=== PATIENT | female | born 1980 | race Caucasian/White ===

== ENCOUNTER → 2018-07-23 | Outpatient (CLI) | payer MEDICAID | LOC: FIMAGING 13:11 | PROVIDERS: ATTEND Family Medicine | DX: R10.32 Left lower quadrant pain (principal); R35.0 Frequency of micturition ==

== ENCOUNTER 2018-07-25 19:13 | Emergency (ER) | payer MEDICAID ==
[2018-07-25] MEDS ORDERED: NS 1,000 ML IV ONE (19:53)
[2018-07-25] MEDS ORDERED: PROMETHAZINE HCL 25 MG/ML INJ IVP ONE (19:53)
--- NOTE | 2018-07-25 19:58 | EDPHY ---
H & P Time Seen by Provider: 07/25/18 19:28 HPI/ROS: HPI Lower abdominal pain. 37-year-old female by ambulance. This patient complains of worsening right lower abdominal pain for the last 3 days. She has been seen by her primary care physician at [facility] for this complaint. She reports that she had a urine test done which was unremarkable. She is not currently on an antibiotic. She reports that she also had an ultrasound which she states did not show anything significant. She comes the emergency department now stating that her pain has been worse since 2:00 p.m. When she last ate. She reports that she had an episode of nonbilious, nonbloody vomiting after she ate. She denies any bloody or melenic stool. No urinary complaints. No diarrhea. Significant past surgical history includes appendectomy and cholecystectomy. The patient is currently menstruating. ROS: Constitutional: No fever, no chills. No weakness. Eyes: No discharge. No changes in vision. ENT: No sore throat. No nasal congestion or rhinorrhea. Respiratory: No cough. No shortness of breath. Cardiac: No chest pain, no palpitations. Gastrointestinal: As above, no diarrhea. Genitourinary: No hematuria. No dysuria or increased frequency with urination. Musculoskeletal: No back pain. No neck pain. No myalgias or arthralgias. Skin: No rashes. Neurological: No headache. No focal weakness or altered sensation. Past medical history: ADD. As above. Social history: Nonsmoker. She is on the no narcotics list of our hospital. Here by herself. Denies alcohol. Physical Exam: General Appearance: Alert, she appears anxious but not in distress. This patient is responding to questions appropriately and in full sentences. This patient appears well-hydrated and well-nourished. Eyes: Pupils equal and round no pallor or injection. No lid edema, erythema or injection. Respiratory: There are no retractions, lungs are clear to auscultation with good air movement bilaterally. Cardiovascular: Regular rate and rhythm. No murmur. Gastrointestinal: Abdomen is soft with vague right lower quadrant tenderness on palpation extending into the mid lower abdomen, no masses, bowel sounds normal. No focal tenderness at McBurney's point. No Mccollum sign. Neurological: Motor sensory function is grossly intact. Cranial nerves are normal. Gait is normal. Skin: Warm and dry, no rashes. Musculoskeletal: Neck is supple and nontender. Extremities are symmetrical. All joints range without pain or impingement. Psychiatric: No agitation. No depression. Database: EKG: Imaging: CT scan of abdomen and pelvis with IV contrast: Status post cholecystectomy. Status post appendectomy. Constipation noted. This is otherwise a normal study. Results were discussed with staff radiologist Dr. Javier Martinez. Procedures: Emergency department course: Triage vital signs reviewed and are normal. IV was placed. She was started on IV normal saline with 500 cc to 1 L to be given over the next hour. She will be given 6.25 mg of IV Phenergan for nausea. CT imaging will be obtained to evaluate for possible bowel obstruction/volvulus. The patient consents to workup. Pelvic ultrasound from 07/23/2018: Report reviewed by myself. Essentially a normal study. Ovaries are unremarkable with good flow. Report dictated by staff radiologist Dr. Alfredo Womack. 8:50 p.m., the patient was re-evaluated, she is resting comfortably at this time. She has been tolerating oral fluids in the emergency department. Results of her emergency department workup were discussed with her. She feels comfortable going home at this time and I feel she is safe for discharge. I will have her follow up with her primary care physician at [facility] on Thursday or Thursday of this week for re-evaluation. Return to emergency department precautions have been reviewed with her. All of her questions were answered. The patient was discharged in good condition. Differential Diagnosis: The differential diagnosis on this patient includes but is not limited to bowel obstruction, ovarian cyst, colitis, diverticulitis. This represents a partial list of diagnoses considered. These considerations are based on history, physical exam, past history, reassessment and diagnostic testing. Smoking Status: Current every day smoker Constitutional: Initial Vital Signs Temperature (C) 36.6 C 07/25/18 19:17 Heart Rate 54 L 07/25/18 19:17 Respiratory Rate 18 07/25/18 19:17 Blood Pressure 137/85 H 07/25/18 19:17 O2 Sat (%) 98 07/25/18 19:17 O2 Delivery Mode Room Air Allergies/Adverse Reactions: penicillin G [Penicillin G] Allergy (Intermediate, Verified 06/13/12 11:08) Rash Home Medications: Medication Instructions Recorded Topiramate [Topamax (RX)] 25 mg PO 01/10/12 Tramadol HCl [Rybix ODT 50 mg] 50 mg PO 01/10/12 Vitamin B Complex [Vitamin B 1 each PO DAILY 01/10/12 Complex (OTC)] oxyCODONE/APAP 5/325 [Percocet 1 - 2 tab PO Q4-6PRN PRN #15 tab 01/10/12 5/325] LYRICA 07/26/13 Ondansetron Odt [Zofran Odt] 4 mg PO Q4PRN PRN #10 tab 07/26/13 Prilosec 07/26/13 Medical Decision Making - Diagnostics Imaging Results: Imaging Impressions Abdomen CT 07/25/18 19:53 Impression: 1. Constipation. 2. Previous appendectomy and cholecystectomy. 3. No bowel obstruction, pneumoperitoneum, urinary tract obstruction, or focal fluid collection. Findings and recommendations discussed with Emergency Department physician, Karo Koo MD at 20:40 hour, 07/25/2018. Final report concurs with initial preliminary interpretation. - Data Points Laboratory Results: Laboratory Results 07/25/18 19:20 07/25/18 19:20 07/25/18 07/25/18 07/25/18 19:50 19:20 19:20 WBC RBC Hgb Hct MCV MCH MCHC RDW Plt Count MPV Neut % (Auto) Lymph % (Auto) Crisp % (Auto) Eos % (Auto) Baso % (Auto) Nucleat RBC Rel Count Absolute Neuts (auto) Absolute Lymphs (auto) Absolute Monos (auto) Absolute Eos (auto) Absolute Basos (auto) Absolute Nucleated RBC Immature Gran % Immature Gran # Sodium 140 mEq/L mEq/L (135-145) Potassium 4.2 mEq/L mEq/L (3.3-5.0) Chloride 104 mEq/L mEq/L (97-110) Carbon Dioxide 26 mEq/l mEq/l (22-31) Anion Gap 10 mEq/L mEq/L (6-14) BUN 15 mg/dL mg/dL (7-23) Creatinine 0.7 mg/dL mg/dL (0.6-1.0) Estimated GFR > 60 Glucose 86 mg/dL mg/dL (70-100) Calcium 9.2 mg/dL mg/dL (8.5-10.4) Total Bilirubin 0.2 mg/dL mg/dL (0.1-1.4) Conjugated Bilirubin 0.2 mg/dL mg/dL (0.0-0.5) Unconjugated Bilirubin 0.0 mg/dL mg/dL (0.0-1.1) AST 25 IU/L IU/L (14-46) ALT 27 IU/L IU/L (9-52) Alkaline Phosphatase 60 IU/L IU/L (38-126) Total Protein 7.3 g/dL g/dL (6.3-8.2) Albumin 4.4 g/dL g/dL (3.5-5.0) Lipase 239 IU/L IU/L (23-300) Beta HCG, Qual NEGATIVE Urine Color YELLOW Urine Appearance CLEAR Urine pH 6.0 (5.0-7.5) Ur Specific Welches 1.016 (1.002-1.030) Urine Protein NEGATIVE (NEGATIVE) Urine Ketones NEGATIVE (NEGATIVE) Urine Blood 3+ H (NEGATIVE) Urine Nitrate NEGATIVE (NEGATIVE) Urine Bilirubin NEGATIVE (NEGATIVE) Urine Urobilinogen NEGATIVE EU EU (0.2-1.0) Ur Leukocyte Esterase NEGATIVE (NEGATIVE) Urine RBC 50-182 /hpf H /hpf (0-3) Urine WBC 1-3 /hpf /hpf (0-3) Ur Epithelial Cells TRACE /lpf /lpf (NONE-1+) Urine Mucus TRACE /lpf /lpf (NONE-1+) Urine Glucose NEGATIVE (NEGATIVE) 07/25/18 19:20 WBC 6.23 10^3/uL 10^3/uL (3.80-9.50) RBC 4.67 10^6/uL 10^6/uL (4.18-5.33) Hgb 14.3 g/dL g/dL (12.6-16.3) Hct 42.4 % % (38.0-47.0) MCV 90.8 fL fL (81.5-99.8) MCH 30.6 pg pg (27.9-34.1) MCHC 33.7 g/dL g/dL (32.4-36.7) RDW 13.3 % % (11.5-15.2) Plt Count 359 10^3/uL 10^3/uL (150-400) MPV 9.4 fL fL (8.7-11.7) Neut % (Auto) 52.9 % % (39.3-74.2) Lymph % (Auto) 34.3 % % (15.0-45.0) Crisp % (Auto) 8.0 % % (4.5-13.0) Eos % (Auto) 3.5 % % (0.6-7.6) Baso % (Auto) 1.1 % % (0.3-1.7) Nucleat RBC Rel Count 0.0 % % (0.0-0.2) Absolute Neuts (auto) 3.29 10^3/uL 10^3/uL (1.70-6.50) Absolute Lymphs (auto) 2.14 10^3/uL 10^3/uL (1.00-3.00) Absolute Monos (auto) 0.50 10^3/uL 10^3/uL (0.30-0.80) Absolute Eos (auto) 0.22 10^3/uL 10^3/uL (0.03-0.40) Absolute Basos (auto) 0.07 10^3/uL 10^3/uL (0.02-0.10) Absolute Nucleated RBC 0.00 10^3/uL 10^3/uL (0-0.01) Immature Gran % 0.2 % % (0.0-1.1) Immature Gran # 0.01 10^3/uL 10^3/uL (0.00-0.10) Sodium Potassium Chloride Carbon Dioxide Anion Gap BUN Creatinine Estimated GFR Glucose Calcium Total Bilirubin Conjugated Bilirubin Unconjugated Bilirubin AST ALT Alkaline Phosphatase Total Protein Albumin Lipase Beta HCG, Qual Urine Color Urine Appearance Urine pH Ur Specific Welches Urine Protein Urine Ketones Urine Blood Urine Nitrate Urine Bilirubin Urine Urobilinogen Ur Leukocyte Esterase Urine RBC Urine WBC Ur Epithelial Cells Urine Mucus Urine Glucose Medications Given: Discontinued Medications Sodium Chloride (Ns) 1,000 mls @ 0 mls/hr IV EDNOW ONE; Wide Open PRN Reason: Protocol Stop: 07/25/18 19:54 Last Admin: 07/25/18 20:00 Dose: 1,000 mls Promethazine HCl (Phenergan) 6.25 mg IVP EDNOW ONE Stop: 07/25/18 19:54 Last Admin: 07/25/18 20:00 Dose: 6.25 mg Departure - Departure Disposition: Home, Routine, Self-Care Clinical Impression: Lower abdominal pain, Constipation Condition: Good Instructions: Acute Abdominal Pain (ED), Constipation (ED) Additional Instructions: Read and follow provided instructions. Follow-up with your primary care physician in 1-2 days for re-evaluation as discussed. Take medication as prescribed. Magnesium citrate: Drink entire contents of bottle at home near bathroom for treatment of constipation. Return to the emergency department for worsening pain, vomiting or other serious concerns. Referrals: NONE *PRIMARY CARE P,. [Primary Care Provider] - As per Instructions
[2018-07-25 20:00] LABS: PLATELET COUNT 359 10^3/uL (150-400)
[2018-07-25] MEDS ORDERED: IOPAMIDOL (ISOVUE-300) 100 ML BTL ONE (20:09)
[2018-07-25] MEDS ORDERED: MAGNESIUM CITRATE 300 ML BOTTLE PO ONE (20:53)
[2018-07-25 21:17] VITALS: BP 129/67
== END 2018-07-25 21:17 | disposition home or self-care (01) ==
LOC: EDUNIT#
DX: R10.30 Lower abdominal pain, unspecified (principal); K59.00 Constipation, unspecified; E86.9 Volume depletion, unspecified; F17.210 Nicotine dependence, cigarettes, uncomplicated; Z88.0 Allergy status to penicillin
CPT/HCPCS: 96374; J2550; Q9967

== ENCOUNTER → 2019-03-08 | Outpatient (CLI) | payer MEDICAID | LOC: FIMAGING 09:52 | PROVIDERS: ATTEND Family Medicine | DX: N89.8 Other specified noninflammatory disorders of vagina (principal); N93.9 Abnormal uterine and vaginal bleeding, unspecified; R35.0 Frequency of micturition; R82.90 Unspecified abnormal findings in urine ==